=== PATIENT | male | born 1985 | race African-American/Black ===

== ENCOUNTER → 2019-12-13 | Outpatient (CLI) | payer BC ==
--- NOTE | 2019-12-13 14:20 | 2DMMODE ---
[facility] [place] [address] 2 D/M-MODE ECHOCARDIOGRAM Name: LAWLERCAMRON E Room #: REG [facility]#: [id number] Admission: 12/13/19 Attend Phys: Ramón Duong MD Discharge: Date of : 85 Report #: [id number] THIS REPORT FOR: cc: Armando Pizarro MD, Sequita MD Park, Jin S. MD ~ APPROVED REPORT Study performed: 12/13/2019 12:46:27 EXAM: Comprehensive 2D, Doppler, and color-flow Echocardiogram Patient Location: Out-Patient Status: routine BSA: 1.90 HR: 60 bpm BP: 124/78 mmHg Rhythm: NSR Other Information Study Quality: Good Indications Dyspnea. Hx: Afib 2D Dimensions RVDd: 42.33 mm IVSd: 9.75 (7-11mm) LVOT Diam: 21.37 (18-24mm) LVDd: 50.03 mm PWd: 9.88 (7-11mm) Ascending Ao: 31.73 (22-36mm) LVDs: 36.35 (25-40mm) Aortic Root: 34.85 mm Volumes Left Atrial Volume (Systole) Single Plane 4CH: 51.17 mL Single Plane 2CH: 45.98 mL LA ESV Index: 29.00 mL/m2 Aortic Valve AoV Peak Tray.: 1.25 m/s AO Peak Gr.: 6.20 mmHg LVOT Max P.78 mmHg LVOT Max V: 0.97 m/s CHAPIS Vmax: 2.80 cm2 [facility] [address] [place] [address] 2 D/M-MODE ECHOCARDIOGRAM Name: CAMRON LAWLER Room #: REG [facility]#: [id number] Admission: 12/13/19 Attend Phys: Ramón Duong MD Discharge: Date of : 85 Report #: [id number] Mitral Valve E/A Ratio: 1.4 MV Decel. Time: 362.06 ms MV E Max Tray.: 0.73 m/s MV A Tray.: 0.53 m/s MV PHT: 105.00 ms IVRT: 73.82 ms Pulmonary Valve PV Peak Tray.: 0.95 m/s PV Peak Gr.: 3.59 mmHg Pulmonary Vein P Vein S: 0.65 m/s P Vein A: 0.23 m/s P Vein D: 0.60 m/s P Vein A Dur.: 110.7 msec P Vein S/D Ratio: 1.08 Tricuspid Valve TR Peak Tray.: 2.32 m/s RAP Estimate: 5.00 mmHg TR Peak Gr.: 22.00 mmHg PA Pressure: 27.00 mmHg Left Ventricle The left ventricle is normal size. There is normal LV segmental wall motion. There is normal left ventricular wall thickness. Left ventricular systolic function is normal. LVEF is 55-60%. The left ventricular diastolic function is normal. Right Ventricle The right ventricle is normal size. The right ventricular systolic function is normal. Atria The left atrium size is normal. The right atrium size is normal. Aortic Valve The aortic valve is normal in structure. No aortic regurgitation is present. There is no aortic valvular stenosis. Mitral Valve The mitral valve is normal in structure. Trace mitral regurgitation. No evidence of mitral valve stenosis. Tricuspid Valve The tricuspid valve is normal in structure. Trace tricuspid [facility] [address] [place] [address] 2 D/M-MODE ECHOCARDIOGRAM Name: CAMRON LAWLER Room #: REG [facility]#: [id number] Admission: 12/13/19 Attend Phys: Rmaón Duong MD Discharge: Date of : 85 Report #: [id number] regurgitation. Estimated PAP is 25mmHg. Pulmonic Valve The pulmonary valve is normal in structure. Mild pulmonic regurgitation. Great Vessels The aortic root is normal in size. The ascending aorta is normal in size. IVC is normal in size and collapses >50% with inspiration. Pericardium There is no pericardial effusion. <Conclusion> The left ventricle is normal size. There is normal left ventricular wall thickness. Left ventricular systolic function is normal. The right ventricle is normal size. The left atrium size is normal. The aortic valve is normal in structure. The mitral valve is normal in structure. <ELECTRONICALLY SIGNED> By: Ramón Duong MD 12/13/191419 19 19 Ramón Duong MD /INF
--- NOTE | 2019-12-13 14:22 | EXE ---
[facility] [place] [address] STRESS ECHOCARDIOGRAM Name: CAMRON LAWLER Room #: REG [facility]#: [id number] Admission: 12/13/19 Attend Phys: Ramón Duong MD Discharge: Date of : 85 Report #: [id number] THIS REPORT FOR: cc: Armando Pizarro MD, Sequita MD Park,Ramón Toscano MD ~ THIS REPORT FOR: //name// APPROVED REPORT Study performed: 12/13/2019 13:13:43 Exam: Stress Echocardiogram Indication: Short of breath Patient Location: Out-Patient Stress Nurse: Kiya FUCHS Status: routine Ht: 5 ft 5 in HR: 58 bpm BP: 124/78 mmHg Rhythm: NSR Medical History Medical History: Afib Allergies: No known drug allergies Cardiac Risk Factors: None Procedure The patient underwent an Exercise Stress Test using the Ramses Protocol. Blood pressure, heart rate, and EKG were monitored. An Echocardiogram was performed by clinical laboratory technician in four stages in quad fashion. At peak stress, four selected images were obtained and placed side by side with resting images for comparison. Stress Test Details Stress Test: Exercise stress testing was performed using a Ramses protocol. HR Resting HR: 58 bpm Max Heart Rate (APMHR): 186 bpm Max HR Achieved: 173 bpm Target HR (85% APMHR): 158 bpm % of APMHR: 93 Recovery HR: 94 bpm HR response to stress: Normal HR response to stress [facility] [address] [place] [address] STRESS ECHOCARDIOGRAM Name: CAMRON LAWLER Room #: REG [facility]#: [id number] Admission: 12/13/19 Attend Phys: Ramón Duong MD Discharge: Date of : 85 Report #: [id number] Resting BP: 124/78 mmHg Max BP: 166/90 mmHg Recovery BP: 140/80 mmHg BP response to stress: Normal blood pressure response to stress. ECG Resting ECG: Sinus Rhythm Stress ECG: Sinus Rhythm, nonspecific ST-T abnormalities ST Change: Non-ischemic Clinical Reason for Termination: fatigue Exercise duration: 10 min 56 sec Highest Stage Achieved: Stage 4: 4.2 mph at 16% grade. Exercise capacity: 13.70 METs Pre-Stress Echo The resting Echocardiogram showed normal left ventricular contractility with an estimated Ejection Fraction of about 55-60%. The resting echocardiogram demonstrated normal wall motion in all wall segments. Post-Stress Echo The stress Echocardiogram showed normal left ventricular contractility with an estimated Ejection Fraction of about 65-70%. Compared to rest, there were no stress-induced wall motion abnormalities. Clinical No clinical or ECG evidence for ischemia. Conclusion Clinical Response: Non-ischemic Exercise Capacity: Above average Stress ECG Response: Non-ischemic Stress Echo Images: Non-ischemic The left ventricle is normal in size and wall thickness in both the rest and stress images. Other Information Study Quality: Adequate <Conclusion> [facility] [address] [place] [address] STRESS ECHOCARDIOGRAM Name: CAMRON LAWLER Room #: REG CL [facility]#: [id number] Admission: 12/13/19 Attend Phys: Ramón Duong MD Discharge: Date of : 85 Report #: [id number] The left ventricle is normal in size and wall thickness in both the rest and stress images. <ELECTRONICALLY SIGNED> By: Ramón Duong MD 12/13/19 142 20 20 Ramón Duong MD /INF
== END ==
LOC: CV 11:59
PROVIDERS: ATTEND Internal Medicine Cardiovascular Disease
DX: R06.00 Dyspnea, unspecified (principal); R06.02 Shortness of breath; I48.91 Unspecified atrial fibrillation; R53.83 Other fatigue